=== PATIENT | female | born 1995 | race Caucasian/White ===

== ENCOUNTER 2021-11-12 14:57 | Observation (INO) | payer SELFPAY ==
[2021-11-12 17:12] VITALS: BP 121/59; PULSE 86; O2SAT 96
== END 2021-11-12 16:20 | disposition home or self-care (01) ==
LOC: OB 14:57
PROVIDERS: ADMIT Obstetrics & Gynecology; ATTEND Obstetrics & Gynecology
DX: Z34.02 Encounter for supervision of normal first pregnancy, second trimester (principal); Z3A.26 26 weeks gestation of pregnancy
CPT/HCPCS: G0378

== ENCOUNTER 2021-11-12 16:05 | Emergency (ER) | payer SELFPAY ==
[2021-11-12] MEDS ORDERED: DUONEB 0.5-3 MG/3 ml Neb IH ONE ×2 (19:14→19:19)
--- NOTE | 2021-11-12 19:22 | ERPHSYRPT ---
- History of Present Illness Time Seen by Provider: 11/12/21 18:55 Source: patient Exam Limitations: no limitations Patient Subjective Stated Complaint: "I'm having some trouble breathing." Triage Nursing Assessment: patient reported that she was seen at [facility] on 11/09/21 for difficulty breathing. She reported having a CT scan and was diagnosed with viral pneumonia and given a roung of IV antibiotics at ER. She reported that since then she has not had any fevers within the last 48hrs. She denied exertional dyspnea, orthopnea, or productive cough. She denied chest pain, headache, dizziness, flank pain, N/V/D, dysuria, heamturia. Pupils 3mm bilateral. Neck supple without JVD. Symmetrical chest expansion. heart tones S1/S2 RRR without extra sounds. Lungs vesicular with adequate airflow and no adventitious sounds. Peripheral pulses +3 bilateral. Gait steady without complications. Ambulatory pulse oximetry was 99% and stable without worsening dyspnea with exertion. Physician History: Patient is a 26-year-old female presents to our ED as a referral from her [employer] physician for evaluation of shortness of breath. Patient states she was diagnosed with viral pneumonia 3 days ago at [facility]. She was treated with antibiotics. However patient has no fever. Shortness of breath is intermittent. Patient states that she feels her chest is somewhat tight and symptoms resolved. Patient feels very minimal shortness of breath. Patient is currently 27 weeks . Patient ambulated in our ED. During triage it was observed that patient had an exertional O2 sat of 97%. Patient otherwise asymptomatic. Timing/Duration: day(s) (4 days) Severity: moderate Modifying Factors: Improves With: nothing Associated Symptoms: denies symptoms Allergies/Adverse Reactions: No Known Drug Allergies Allergy (Verified 11/12/21 18:49) Home Medications: Buspirone HCl 5 mg [Buspar 5 mg] 10 mg PO DAILY 11/12/21 [History] Hx Tetanus, Diphtheria Vaccination/Date Given: No Hx Influenza Vaccination/Date Given: No Travel Risk - International Travel Have you traveled outside of the country in past 3 weeks: No - Coronavirus Screening Are you exhibiting any of the following symptoms?: Yes Symptoms: Shortness of Breath Close contact with a COVID-19 positive Pt in past 14-21 Days: No - Vaccine Status Have you recieved a Covid-19 vaccination: No - Review of Systems Constitutional: No Symptoms, No Fever, No Chills Eyes: No Symptoms Ears, Nose, & Throat: No Symptoms Respiratory: No Symptoms, No Cough, No Dyspnea Cardiac: No Symptoms, No Chest Pain, No Edema, No Syncope Abdominal/Gastrointestinal: No Symptoms, No Abdominal Pain, No Nausea, No Vomiting, No Diarrhea Genitourinary Symptoms: No Symptoms, No Dysuria Musculoskeletal: No Symptoms, No Back Pain, No Neck Pain Skin: No Symptoms, No Rash Neurological: No Symptoms, No Dizziness, No Focal Weakness, No Sensory Changes Psychological: No Symptoms Endocrine: No Symptoms Hematologic/Lymphatic: No Symptoms Immunological/Allergic: No Symptoms All Other Systems: Reviewed and Negative - Past Medical History Pertinent Past Medical History: No - Past Surgical History Past Surgical History: Yes - Social History Smoking Status: Never smoker Exposure to second hand smoke: No Drug Use: none Patient Lives Alone: No - Female History Hx Now: Yes Expected Date of Delivery: 02/10/22 - Nursing Vital Signs Nursing Vital Signs: Initial Vital Signs Pulse Rate 18 L 11/12/21 18:50 Respiratory Rate 18 11/12/21 18:50 Blood Pressure 132/86 11/12/21 18:50 O2 Sat by Pulse Oximetry 98 11/12/21 18:50 Pain Scale Pain Intensity 0 - Physical Exam General Appearance: no apparent distress, alert Eye Exam: PERRL/EOMI, eyes nml inspection Ears, Nose, Throat Exam: normal ENT inspection, TMs normal, pharynx normal, moist mucous membranes Neck Exam: normal inspection, non-tender, supple, full range of motion Respiratory Exam: normal breath sounds, lungs clear, airway intact, No respiratory distress Cardiovascular Exam: regular rate/rhythm, normal heart sounds, normal peripheral pulses Gastrointestinal/Abdomen Exam: soft, normal bowel sounds, No tenderness, No mass Back Exam: normal inspection, normal range of motion, No CVA tenderness, No vertebral tenderness Extremity Exam: normal inspection, normal range of motion, pelvis stable, other (Negative Homans' sign bilaterally.) Neurologic Exam: alert, oriented x 3, cooperative, normal mood/affect, nml cerebellar function, nml station & gait, sensation nml, No motor deficits Skin Exam: normal color, warm, dry, No rash Lymphatic Exam: No adenopathy SpO2 Interpretation: normal SpO2: 98 O2 Delivery: Room Air - Course Nursing assessment & vital signs reviewed: Yes Ordered Tests: Medication Summary Discontinued Medications Generic Name Dose Route Start Last Admin Trade Name Chan PRN Reason Stop Dose Admin Albuterol/Ipratropium 3 ml 11/12/21 19:14 Ipratropium/Albuterol Sulfate 3 Ml Ampul.Neb 11/12/21 19:15 STAT ONE - Progress Progress: improved Progress Note: Patient reassessed. She feels well. Lungs are clear. We treated patient with a trial of albuterol. Symptoms significantly improved. Case discussed with Dr. Fletcher. We will send patient home with a prescription for Ventolin albuterol inhaler. No indication for further work-up. Patient had a CAT scan done 3 days ago. There will be no benefit of doing an x-ray today a repeat CAT scan. Patient's vitals are normal. O2 sat is 98% during exertion and at rest. Shortness of breath may be due to her recently diagnosed viral pneumonia and the fact that she is currently . Patient has no calf pain. No concerns for DVT at this time. Home test negative. Will discharge home. Patient agrees to follow-up with her primary care doctor/OB physician within 48 hours for evaluation. Patient that she is ready for discharge. Portions of this note were created with voice recognition technology. There may be grammatical, spelling, punctuation or sound alike errors 11/12/21 19:22 Reviewed CTA chest performed on 11/09/2021 at [facility]. No thoracic aortic aneurysm or dissection. Pulmonary arteries are adequately opacified. No pulmonary artery filling defect to suggest pulmonary embolus. Minimal dependent atelectasis. Mild respiratory motion artifact. No airspace consolidation. No pulmonary mass or suspicious calcified pulmonary nodule. No pleural effusion or pneumothorax. No lymphadenopathy. Heart size is normal with no pericardial effusion. No adenopathy. No acute abnormality in the visualized upper abdomen. Thoracic vertebrae heights are intact. No vertebral compression fracture or traumatic malalignment. 11/12/21 19:[address] Margarita Will see patient in: office Counseled pt/family regarding: diagnosis, need for follow-up, rad results - Departure Departure Disposition: Home Clinical Impression: Shortness of breath Condition: Stable Critical Care Time: No Referrals: MEGHNA BLOOM [Primary Care Provider] - Follow up/PCP as directed Additional Instructions: Discharge/Care Plan AKIN FELDMAN was seen on 11/12/21 in the Emergency Room. The patient was counseled regarding Diagnosis,Lab results, Imaging studies, need for follow up and when to return to the Emergency Room. Prescriptions given: Discharge Note I have spoken with the patient and/or caregivers. I have explained the patient's condition, diagnosis and treatment plan based on the information available to me at this time. I have answered the patient's and/or caregiver's questions and addressed any concerns. The patient and/or caregivers have as good understanding of the patient's diagnosis, condition and treatment plan as can be expected at this point. The vital signs have been stable. The patient's condition is stable and appropriate for discharge from the emergency department. The patient will pursue further outpatient evaluation with the primary care phys ician or other designated or consulting physician as outlined in the discharge instructions. The patient and/or caregivers are agreeable to this plan of care and follow-up instructions have been explained in detail. The patient and/or caregivers have received these instruction. The patient/and or caregivers are aware that any significant change in condition or worsening of symptoms should prompt an immediate return to this or the closest emergency department or call 911.
[2021-11-12 19:30] VITALS: PULSE 104
[2021-11-12 19:36] VITALS: O2SAT 98
[2021-11-12 19:39] VITALS: BP 114/66
== END 2021-11-12 19:39 | disposition home or self-care (01) ==
LOC: ED 16:05
DX: R06.02 Shortness of breath (principal); Z33.1 Pregnant state, incidental
CPT/HCPCS: 94640; 99283; A9270-GY

== ENCOUNTER 2021-12-18 10:46 | Observation (INO) | payer SELFPAY ==
--- NOTE | 2021-12-18 11:58 | XRAY ---
Indication: growth. 2-dimensional OB ultrasound performed. Comparison: October 02, 2021 Again single intrauterine now in cephalic presentation. heart rate 131 BPM. anatomy previously documented. Posterior fundal placenta without abruption/previa. BPD measures 8.38 cm corresponding to 33 weeks 5 days. HC measures 28.70 cm corresponding to 31 weeks 4 days. AC measures 29.30 cm corresponding to 33 weeks 2 days. FL measures 6.16 cm corresponding to 32 weeks 0 days. Estimated weight 4 lb. 8 oz., +/- 11 ounces. Approximately 55 percentile. CLAUDIO is 14.5 cm. Impression: Single viable intrauterine with mean gestational age 32 weeks 5 days. Normal progression of .
== END 2021-12-18 12:21 | disposition home or self-care (01) ==
LOC: RAD 10:46 → OB 11:43
PROVIDERS: ADMIT Obstetrics & Gynecology; ATTEND Obstetrics & Gynecology
DX: Z34.03 Encounter for supervision of normal first pregnancy, third trimester (principal); Z3A.32 32 weeks gestation of pregnancy
CPT/HCPCS: 59025; 76816; G0378

== ENCOUNTER 2021-12-25 16:08 | Observation (INO) | payer SELFPAY ==
[2021-12-25 16:44] VITALS: BP 136/79; PULSE 93; O2SAT 97
--- NOTE | 2021-12-25 18:06 | XRAY ---
Indication: well-being. Ultrasound biophysical profile study performed. Comparison: None Single intrauterine currently in cephalic presentation with heart rate 123 BPM. Four-quadrant CLAUDIO is 13.4 cm, largest pocket 5.7 cm. 2 points given for breathing, movements, tone, and qualitative amniotic fluid volume. Impression: Total biophysical profile score is 8 out of 8.
== END 2021-12-25 18:23 | disposition home or self-care (01) ==
LOC: OB 16:08
PROVIDERS: ADMIT Obstetrics & Gynecology; ATTEND Obstetrics & Gynecology
DX: Z34.03 Encounter for supervision of normal first pregnancy, third trimester (principal); Z3A.33 33 weeks gestation of pregnancy
CPT/HCPCS: 59025; 76818; G0378

== ENCOUNTER 2021-12-28 15:11 | Observation (INO) | payer SELFPAY ==
[2021-12-28 15:34] VITALS: BP 133/86; PULSE 102
[2021-12-28 16:17] VITALS: O2SAT 98
== END 2021-12-28 16:20 | disposition home or self-care (01) ==
LOC: OB 15:11
PROVIDERS: ADMIT Obstetrics & Gynecology; ATTEND Obstetrics & Gynecology
DX: O98.513 Other viral diseases complicating pregnancy, third trimester (principal); Z3A.33 33 weeks gestation of pregnancy
CPT/HCPCS: 59025; G0378

== ENCOUNTER 2022-01-01 12:11 | Observation (INO) | payer SELFPAY ==
[2022-01-01 12:37] VITALS: BP 131/79; PULSE 90
== END 2022-01-01 12:45 | disposition home or self-care (01) ==
LOC: OB 12:11
PROVIDERS: ADMIT Obstetrics & Gynecology; ATTEND Obstetrics & Gynecology
DX: O98.513 Other viral diseases complicating pregnancy, third trimester (principal); Z3A.34 34 weeks gestation of pregnancy
CPT/HCPCS: 59025; G0378

== ENCOUNTER 2022-01-11 12:48 | Observation (INO) | payer SELFPAY ==
[2022-01-11 13:29] VITALS: BP 120/80; PULSE 99; O2SAT 97
== END 2022-01-11 14:05 | disposition home or self-care (01) ==
LOC: OB 12:48
PROVIDERS: ADMIT Obstetrics & Gynecology; ATTEND Obstetrics & Gynecology
DX: O98.513 Other viral diseases complicating pregnancy, third trimester (principal); Z3A.35 35 weeks gestation of pregnancy
CPT/HCPCS: 59025; G0378

== ENCOUNTER 2022-01-16 09:56 | Observation (INO) | payer SELFPAY ==
[2022-01-16 10:16] VITALS: BP 132/78; PULSE 92; O2SAT 99
== END 2022-01-16 10:30 | disposition home or self-care (01) ==
LOC: OB 09:56
PROVIDERS: ADMIT Obstetrics & Gynecology; ATTEND Obstetrics & Gynecology
DX: O98.513 Other viral diseases complicating pregnancy, third trimester (principal); Z3A.36 36 weeks gestation of pregnancy
CPT/HCPCS: 59025; G0378

== ENCOUNTER 2022-02-04 00:50 | Inpatient (IN) | payer SELFPAY ==
[~2022-02-04 00:50] MED LIST: STADOL 2 MG IV PRN
[2022-02-04] MEDS ORDERED: Zofran 4 MG/2 ML VIAL IV PRN (19:00)
[2022-02-04 20:01] LABS: Hematocrit 40.1 % (35-47); Hemoglobin 13.2 gm/dl (12.0-16.0); Mean Corpuscular Hemoglobin 31.3 pg (26-32); Mean Corpuscular Hgb Concent. 32.9 g/dl (32-36); Mean Platelet Volume 11.4 fl (7.5-11.0); Platelet Count 181 K/mm3 (150-450); Red Blood Count 4.22 M/mm3 (4.1-5.4); White Blood Count 15.4 K/mm3 (4.0-10.5)
[2022-02-04 20:17] LABS: Amphetamine,Urine NEGATIVE (NEGATIVE); Barbiturate,Urine NEGATIVE (NEGATIVE); Benzodiazepine,Urine NEGATIVE (NEGATIVE); Cocaine,Urine NEGATIVE (NEGATIVE); Methadone,Urine NEGATIVE (NEGATIVE); Opiate,Urine NEGATIVE (NEGATIVE); PCP,Urine NEGATIVE (NEGATIVE); THC,Urine NEGATIVE (NEGATIVE)
[2022-02-05 01:03] LABS: BAND 1 % (0.0-2.0); Eosinophil 2 % (0.00-3.0); Lymphocytes 22 % (24-44); Monocyte 1 % (0.0-12.0); Platelet Estimate NORMAL (NORMAL); Total Cells Counted 100
[2022-02-05] MEDS: Lactated Ringers 1,000 ML IV SCH ×2 (01:22→10:02)
[2022-02-05] MEDS ORDERED: Lactated Ringers 1,000 ML IV ONE (02:33)
[2022-02-05] MEDS ORDERED: Ephedrine Sulfate 50 MG/ML IV PRN (02:33)
[2022-02-05] MEDS ORDERED: FENTANYL 2 MCG-BUPIV 0.125%-NS 250 ML Epidur 250 ML EPIDURAL SCH (02:45)
[2022-02-05] MEDS ORDERED: XYLOCAINE 1% HCL 20 ML MDV IJ PRN (04:00)
[2022-02-05] MEDS ORDERED: PITOCIN 30 UNITS/ LR 500 ML 30 UNITS/500 ML PLAST..BAG IV SCH ×2 (08:00)
[2022-02-05] MEDS ORDERED: TUCKS TP PRN (10:39)
[2022-02-05] MEDS ORDERED: LANSINOH 40 GM TOP PRN (10:39)
[2022-02-05] MEDS ORDERED: Dermoplast Spray TP PRN (10:39)
[2022-02-05] MEDS: MOTRIN 400 MG PO PRN ×2 (11:37→17:34)
[2022-02-05] MEDS ORDERED: Adacel Vial IM ONE (12:00)
[2022-02-05] MEDS: TYLENOL EXTRA STRENGTH 500 MG PO PRN ×2 (14:53→21:48)
[2022-02-05] MEDS ORDERED: BUSPAR 5 MG PO SCH (18:30)
[2022-02-05] MEDS: Docusate Sodium 100 MG PO SCH (21:50)
[2022-02-06] MEDS: MOTRIN 400 MG PO PRN ×4 (00:09→20:40)
[2022-02-06] MEDS: TYLENOL EXTRA STRENGTH 500 MG PO PRN ×4 (04:50→23:02)
[2022-02-06 04:53] LABS: Absolute Neutrophil Ct (ANC) 16.33 (1.4-6.9); Basophil (Absolute #) 0.02 (0-0.4); Eosinophil % 0.8 % (0.00-5.0); Eosinophil (Absolute #) 0.16 (0-0.5); Hematocrit 34.7 % (35-47); Hemoglobin 11.2 gm/dl (12.0-16.0); Lymphocyte (Absolute #) 2.33 (1.0-4.6); Lymphocytes % 11.3 % (24.0-44.0); Mean Cell Volume 96.4 fl (78-100); Mean Corpuscular Hemoglobin 31.1 pg (26-32); Mean Corpuscular Hgb Concent. 32.3 g/dl (32-36); Mean Platelet Volume 11.2 fl (7.5-11.0); Monocyte (Absolute #) 1.73 (0.0-1.3); Monocytes % 8.4 % (0.0-12.0); Neutrophil % 79.4 % (36.0-66.0); Platelet Count 167 K/mm3 (150-450); Red Cell Distribution Width 13.1 % (11.5-14.0); White Blood Count 20.6 K/mm3 (4.0-10.5)
[2022-02-06 05:24] VITALS: O2SAT 98
--- NOTE | 2022-02-06 07:43 | PCM.NOTE ---
Date and Time: 02/06/22 0741 Subjective Assessment: ppd 1 pt resting in bed and doing well vss afebrile abd; soft uterus; firm lochia; mild hgb; 11 a/p sp ppd 1 doing well anticipate discharge tomorrow OBJECTIVE DATA Vital Signs: Vital Signs - 24 hr Temp Pulse Resp BP BP Pulse Ox 02/06/22 03:00 98.6 F 79 18 97/53 98 02/05/22 21:00 98.7 F 88 18 106/51 02/05/22 15:00 80 16 116/54 97 02/05/22 12:45 77 18 115/56 02/05/22 11:45 97 H 18 137/67 02/05/22 11:25 97 H 20 143/72 02/05/22 11:10 100 H 20 142/73 02/05/22 11:00 100 H 18 115/56 02/05/22 10:55 105 H 24 115/64 02/05/22 10:40 96 H 24 120/64 02/05/22 10:27 116 H 24 02/05/22 10:12 116 H 22 02/05/22 09:57 80 22 112/58 02/05/22 09:42 87 22 133/70 02/05/22 09:27 94 H 22 129/79 02/05/22 09:00 93 H 16 121/72 02/05/22 08:45 90 18 125/71 02/05/22 08:30 92 H 18 103/58 02/05/22 08:15 81 18 100/58 02/05/22 08:00 98 H 18 118/78 Pain Assessment - Last Documented Pain Intensity [Lower Anterior 2 ] Pain Intensity 3 Pain Scale Used 0-10 Pain Scale Intake and Output: Intake & Output 02/03/22 02/04/22 02/05/22 02/06/22 11:59 11:59 11:59 11:59 Intake Total 2825 2800 Output Total 900 400 Balance 1925 2400 Weight 76.657 kg Lab Results: Lab Results-Last 24 Hours 02/06/22 Range/Units 04:40 WBC 20.6 H (4.0-10.5) K/mm3 RBC 3.60 L (4.1-5.4) M/mm3 Hgb 11.2 L (12.0-16.0) gm/dl Hct 34.7 L (35-47) % MCV 96.4 (78-100) fl MCH 31.1 (26-32) pg MCHC 32.3 (32-36) g/dl RDW 13.1 (11.5-14.0) % Plt Count 167 (150-450) K/mm3 MPV 11.2 H (7.5-11.0) fl Gran % 79.4 H (36.0-66.0) % Eos # (Auto) 0.16 (0-0.5) Absolute Lymphs (auto) 2.33 (1.0-4.6) Absolute Monos (auto) 1.73 H (0.0-1.3) Lymphocytes % 11.3 L (24.0-44.0) % Monocytes % 8.4 (0.0-12.0) % Eosinophils % 0.8 (0.00-5.0) % Basophils % 0.1 (0.0-0.4) % Absolute Granulocytes 16.33 H (1.4-6.9) Basophils # 0.02 (0-0.4) Assessment/Plan (1) Vaginal delivery Current Visit: Yes Status: Acute Code(s): O80 - ENCOUNTER FOR FULL-TERM UNCOMPLICATED DELIVERY
[2022-02-06] MEDS: FERREX 150 PO SCH (08:53)
[2022-02-06] MEDS: Docusate Sodium 100 MG PO SCH ×2 (08:53→21:10)
[2022-02-06 11:35] LABS: Slide Review 1 YES
[2022-02-06 13:57] LABS: HBsAg Screen Negative (Negative)
[2022-02-06] MEDS: BUSPAR 5 MG PO SCH (20:39)
[2022-02-07] MEDS: MOTRIN 400 MG PO PRN ×2 (02:09→08:40)
[2022-02-07 03:16] VITALS: PULSE 73
[2022-02-07] MEDS: TYLENOL EXTRA STRENGTH 500 MG PO PRN (06:43)
--- NOTE | 2022-02-07 07:35 | PCM.NOTE ---
Date and Time: 02/07/22 0734 Subjective Assessment: ppd 2 pt resting in bed and doing well vss afebrile abd; soft uterus; firm lochia; mild a/p sp ppd 2 dc home today fu office in 3 wks OBJECTIVE DATA Vital Signs: Vital Signs - 24 hr Temp Pulse Resp BP Pulse Ox 02/07/22 03:00 97.8 F 73 18 107/68 02/06/22 20:56 97.9 F 95 H 20 116/66 98 02/06/22 15:00 97.9 F 95 H 20 116/66 98 02/06/22 09:00 98 F 20 Pain Assessment - Last Documented Pain Intensity [Lower Anterior 2 ] Pain Intensity 2 Pain Scale Used 0-10 Pain Scale Intake and Output: Intake & Output 02/04/22 02/05/22 02/06/22 02/07/22 11:59 11:59 11:59 11:59 Intake Total 2825 2800 1999 Output Total 900 400 Balance 1925 2400 1999 Weight 76.657 kg Lab Results: Lab Results-Last 24 Hours 02/04/22 02/06/22 Range/Units 19:30 04:40 Hep Bs Antigen Negative (Negative) Slides for Path Review YES Assessment/Plan (1) Vaginal delivery Current Visit: Yes Status: Acute Code(s): O80 - ENCOUNTER FOR FULL-TERM UNCOMPLICATED DELIVERY
--- NOTE | 2022-02-07 07:38 | PCM.DS ---
Discharge Summary Date of Admission: 02/05/22 00:50 Admitting Physician: JUANITO GORDILLO DO Consults: Consults on Case 02/05/22 02:34 Notify Anesthesia Provider PRN 02/05/22 15:05 Navigation ONCE Primary Care Provider: MEGHNA BLOOM Allergies Allergies No Known Drug Allergies Allergy (Verified 01/11/22 13:17) Hospital Summary - Hospital Course Hospital Course: pt admitted on february 04 for cytotec induction and delivered live baby boy via without complication on february 05. during period did well with stable hgb at 10 and now stable for discharge. all questions answered to her satisfaction and was advised to fu in office in 3 wks. - Vitals & Intake/Output Vital Signs: Vital Signs Temperature 97.8 F 02/07/22 03:00 Pulse Rate 73 02/07/22 03:00 Respiratory Rate 18 02/07/22 03:00 Blood Pressure 107/68 02/07/22 03:00 O2 Sat by Pulse Oximetry 98 02/06/22 20:56 Intake & Output: Intake & Output 02/04/22 02/05/22 02/06/22 02/07/22 11:59 11:59 11:59 11:59 Intake Total 2825 2800 1999 Output Total 900 400 Balance 1925 2400 1999 Weight 76.657 kg - Lab Result Diagrams: 02/06/22 04:40 Lab Results-Last 24 Hrs: Lab Results-Last 24 Hours 02/04/22 02/06/22 Range/Units 19:30 04:40 Hep Bs Antigen Negative (Negative) Slides for Path Review YES Micro Results-Entire Visit: Microbiology 02/05/22 04:00 Urine Culture - Preliminary Catherized NO GROWTH TO DATE Final Diagnosis/Problem List - Final Discharge Diagnosis/Problem (1) Vaginal delivery Current Visit: Yes Status: Acute Code(s): O80 - ENCOUNTER FOR FULL-TERM UNCOMPLICATED DELIVERY - Discharge Disposition: Home, Self-Care Condition: Stable Prescriptions: No Action Buspirone HCl 5 mg [Buspar 5 mg] 10 mg PO DAILY Additional Instructions: YOU MAY ALTERNATE TYLENOL 1,000 MG EVERY 4 HOURS AND IBPROFEN (MOTRIN) 800 MG EVERY 6 HOURS FOR PAIN RELIEF. Follow up with: MEGHNA BLOOM [Primary Care Provider] - JUANIOT GORDILLO DO [ACTIVE STAFF] - 3 weeks (fu office in 3 wks)
[2022-02-07] MEDS: Docusate Sodium 100 MG PO SCH (08:40)
[2022-02-07] MEDS: FERREX 150 PO SCH (08:40)
[2022-02-07] MEDS: BUSPAR 5 MG PO SCH (08:41)
[2022-02-07 09:13] VITALS: BP 110/68
== END 2022-02-07 11:50 | disposition home or self-care (01) | DRG 807 ==
LOC: OB 00:50 → OBSVTOIN 02-05 00:50
PROVIDERS: ADMIT Obstetrics & Gynecology; ATTEND Obstetrics & Gynecology
PROC: 10E0XZZ Delivery of Products of Conception, External Approach (ICD-10-PCS; principal; 2022-02-05)
PROC: 0KQM0ZZ Repair Perineum Muscle, Open Approach (ICD-10-PCS; 2022-02-05)
DX: O70.1 Second degree perineal laceration during delivery (principal); Z37.0 Single live birth; Z3A.39 39 weeks gestation of pregnancy; Z20.828 Contact with and (suspected) exposure to other viral communicable diseases
CPT/HCPCS: 36415; 59409; 80307; 84112; 85025; 87086; 87340; 90715; G0378; J2405; J2590; A9270-GY